=== PATIENT | male | born 1950 | race Caucasian/White ===

== ENCOUNTER 2017-09-21 12:09 | Emergency (ER) | payer MEDICARE ==
[2017-09-21] MEDS ORDERED: Ketorolac Tromethamine 30 MG/ML VIAL ONE (12:54)
== END 2017-09-21 13:05 | disposition home or self-care (01) ==
LOC: ERS 12:09
DX: R21 Rash and other nonspecific skin eruption (principal); E78.5 Hyperlipidemia, unspecified; I10 Essential (primary) hypertension; F17.210 Nicotine dependence, cigarettes, uncomplicated
CPT/HCPCS: 96372; J1885

== ENCOUNTER 2018-03-03 16:16 | Outpatient (CLI) | payer MEDICARE ==
--- NOTE | 2018-03-03 17:49 | CT ---
LOW DOSE SCREENING LUNG CT: 03/03/18 HISTORY: Personal history of tobacco use. 51 years of smoking. Family history of lung cancer. COMPARISON: None. TECHNIQUE: Noncontrast low dose helical CT of the lungs is performed utilizing institution protocol. Reformatted images are submitted for interpretation. FINDINGS: Lung screen specific (Lung RADS) negative. Minor findings not suspicious for primary lung cancer. Potential significant lymph nodes (Lung RADS category S): None. Pulmonary incidentals: Bilateral apical blebs are noted. Other incidentals: Minimal coronary calcifications. IMPRESSION: 1. Lung RADS category 1: Negative. No evidence of primary lung cancer. 2. Lung RADS category S: Negative. No new or unknown potential significant incidental findings r equiring urgent or additional evaluation. RECOMMENDATION: Followup annual low dose screening CT in one year. POS: HEDY
== END 2018-03-03 16:17 | disposition home or self-care (01) ==
LOC: CT 16:16
PROVIDERS: ATTEND Student in an Organized Health Care Education/Training Program
DX: F17.210 Nicotine dependence, cigarettes, uncomplicated (principal); Z00.00 Encounter for general adult medical examination without abnormal findings; I10 Essential (primary) hypertension; Z82.49 Family history of ischemic heart disease and other diseases of the circulatory system
CPT/HCPCS: G0297

== ENCOUNTER 2018-03-26 16:14 | Emergency (ER) | payer MEDICARE, BC ==
[2018-03-26] MEDS ORDERED: diphenhydrAMINE 25 MG CAP ONE (17:34)
== END 2018-03-26 17:50 | disposition home or self-care (01) ==
LOC: ERS 16:14
DX: M79.89 Other specified soft tissue disorders (principal); T50.905A Adverse effect of unspecified drugs, medicaments and biological substances, initial encounter; E78.5 Hyperlipidemia, unspecified; I10 Essential (primary) hypertension; F17.210 Nicotine dependence, cigarettes, uncomplicated
CPT/HCPCS: 99283

== ENCOUNTER 2018-08-15 11:35 | Emergency (ER) | payer BC, MEDICARE, OTHER | END 2018-08-15 12:15 | disposition home or self-care (01) | LOC: ERS 11:35 | DX: B02.9 Zoster without complications (principal); E78.5 Hyperlipidemia, unspecified; I10 Essential (primary) hypertension | CPT/HCPCS: 99283 ==

== ENCOUNTER 2020-02-13 06:48 | Inpatient (IN) | payer BC, MEDICARE ==
[2020-02-13] MEDS ORDERED: Heparin 1,000 UNITS/ML VIAL ONE (06:52)
[2020-02-13 07:04] LABS: #Eosinphils 0.3 thou/uL (0.0-0.7); #Monocytes 0.5 thou/uL (0.11-0.59); #Neutrophils 2.6 thou/uL (1.40-6.50); %Basophils 0.7 % (0.0-1.0); %Eosinophils 5.2 % (0.0-10.0); %Lymphocytes 45.9 % (21.0-51.0); %Monocytes 8.1 % (0.0-10.0); %Neutrophils 40.2 % (42.0-75.0); Hemoglobin 15.4 g/dL (14.0-18.0); Mean Corpuscular HGB CONC 34.3 g/dL (32.0-36.0); Mean Corpuscular Hemoglobin 33.7 pg (27.0-31.0); Mean Corpuscular Volume 98.4 fL (78.0-98.0); Platelet Count 270 thou/uL (130-400); RBC Distribution Width 12.4 % (11.5-14.5); Red Blood Cell (RBC) Count 4.58 mill/uL (4.70-6.10); White Blood Cell (WBC) Count 6.5 thou/uL (4.8-10.8)
[2020-02-13 07:13] LABS: INR-International Normal Ratio 0.9; PTT 26.9 SEC (22.9-36.1); Prothrombin Time 11.6 SEC (12.0-14.7)
[2020-02-13] MEDS ORDERED: Nitroglycerin 100MG/250ML BOT 0 ML ONE (07:22)
[2020-02-13] MEDS ORDERED: Ondansetron PF 4 MG/2 ML Vial ONE (07:22)
[2020-02-13] MEDS ORDERED: Heparin 10,000 UNITS/1 ML VIAL ONE (07:22)
[2020-02-13] MEDS ORDERED: Atropine Sulfate 1 mg/10 ml Syringe ONE (07:26)
[2020-02-13] MEDS ORDERED: Atropine Sulfate 1 mg/1 ml Vial ONE (07:26)
[2020-02-13] MEDS ORDERED: Aggrastat 12.5 MG/250 ML 250 ML ONE (07:27)
[2020-02-13 07:33] LABS: ALT (SGPT) 20 U/L (8-55); AST (SGOT) 19 U/L (5-34); Alkaline Phosphatase 114 U/L (40-110); Anion Gap 12 mmol/L (10-20); BUN (Urea Nitrogen) 15 mg/dL (8.4-25.7); Bilirubin, Total 0.4 mg/dL (0.2-1.2); Calc. Creatinine Clearance 0 mL/min (70-130); Carbon Dioxide 28 mmol/L (23-31); Chloride 108 mmol/L (98-107); Estimated GFR-MDRD 77; Globulin 2.5 g/dL (2.4-3.5); Glucose 146 mg/dL (80-115); Potassium 3.8 mmol/L (3.5-5.1); Protein, Total 6.5 g/dL (5.8-8.1); Sodium 144 mmol/L (136-145)
[2020-02-13] MEDS ORDERED: Milk Of Magnesia 30 ML UDCUP PO PRN (08:08)
[2020-02-13] MEDS ORDERED: traMADol HCl 50 MG TAB PO PRN (08:08)
[2020-02-13] MEDS ORDERED: Mag-Al 1200 mg/1200 mg/30 ML UDCUP PO PRN (08:08)
[2020-02-13] MEDS ORDERED: Nitroglycerin 0.4 MG TAB (25 Tab Bottle) SL PRN (08:08)
[2020-02-13] MEDS ORDERED: Acetaminophen/Codeine 30-300mg Tablet PO PRN (08:08)
[2020-02-13] MEDS ORDERED: Zolpidem Tartrate 5 MG TAB PO PRN (08:08)
[2020-02-13] MEDS ORDERED: Aggrastat 12.5 MG/250 ML 250 ML IVPB SCH (08:15)
--- NOTE | 2020-02-13 08:37 | HP ---
CHIEF COMPLAINT: Chest pain. HISTORY OF PRESENT ILLNESS: Mr. Fontenot is a pleasant 69-year-old white gentleman, who comes to the hospital for chest pain. He started having chest pain at about 5:30 a.m. He showed up in the hospital at about 6:30. He was found to have an inferior ST-elevation RI, so he was taken emergently to the catheterization lab, where he was found to have a very large dominant left circumflex, which was occluded proximally. This was successfully opened and stented with a bare-metal stent. He did well postprocedure. He was bradycardic initially. His heart rate was in the 60s to 70s at the end. His blood pressure was normal. He was conversant and pain-free. PAST MEDICAL HISTORY: Hypertension, on no medications. PAST SURGICAL HISTORY: Tonsillectomy. OUTPATIENT MEDICATIONS: None. He states that blood pressure medicines made him feel bad, so he did not take them. ALLERGIES: NO KNOWN DRUG ALLERGIES. SOCIAL HISTORY: He smokes a pack a day for 50 years. REVIEW OF SYSTEMS: A 12-point review of systems was done and was all negative unless stated in the history of present illness. PHYSICAL EXAMINATION: VITAL SIGNS: Temperature 98.2, pulse 72, respiratory rate 16, saturating 98% on 2 L nasal cannula. GENERAL: Awake, alert, oriented x3. No distress. HEENT: Normocephalic and atraumatic. NECK: Supple. LUNGS: Clear. CARDIOVASCULAR: S1, S2. No S3 or S4. No murmurs. ABDOMEN: Soft. Positive bowel sounds. EXTREMITIES: No edema. SKIN: Warm and dry. LABORATORY DATA: Laboratory work was reviewed. White count of 6, hemoglobin of 15, hematocrit of 45, and platelet count of 270. Coags were unremarkable. Chemistry was unremarkable. Initial troponin of 0.016. EKG showed inferior ST elevations. ASSESSMENT: 1. Inferior ST-elevation myocardial infarction. 2. Status post bare-metal stent to the dominant left circumflex. 3. Hypertension. 4. Tobacco abuse. 5. Noncompliance. PLAN: 1. Dual antiplatelet therapy for a minimum of one month, ideally one year. We will do Brilinta and aspirin while he is in the hospital. Depending on how we see his attitude toward medications as well as his insurance status, we will decide if we just switch him back to Plavix. 2. High dose statin. 3. Beta-bartolome and GOMEZ inhibitor once blood pressure allows. Currently blood pressure is borderline low. 4. Full code. 5. PPI for stress ulcer prophylaxis. 6. Aggrastat for 6 hours and then pull the sheath 1 hour later. 7. Disposition, pending clinical evaluation. Job ID: [id number]
--- NOTE | 2020-02-13 09:00 | RAD ---
Exam: Chest one view HISTORY:Chest pain. Comparison: 08/12/2006 FINDINGS: Cardiac silhouette: Normal Aorta: Unremarkable Pulmonary vessels: Normal Costophrenic angles: Clear LUNGS: No masses or consolidation. Pneumothorax: None Osseous abnormalities: None IMPRESSION: No acute cardiopulmonary process.
[2020-02-13] MEDS ORDERED: Heparin 10,000 UNITS/ 10 ML VIAL ONE (09:19)
[2020-02-13] MEDS ORDERED: Iopamidol 370 76% 50 ML VIAL FS ONE (09:30)
[2020-02-13] MEDS ORDERED: Iopamidol 370 76% 100 ML VIAL ONE (09:30)
[2020-02-13 11:15] VITALS: BMI 26.3
[2020-02-13] MEDS: TICAGRELOR 90 MG TABLET PO SCH ×2 (11:27→20:10)
[2020-02-13] MEDS: Aspirin Chewable 81 MG TAB PO SCH (11:27)
[2020-02-13 12:41] LABS: CKMB 326.7 ng/mL (0-6.6); Troponin I 155.847 ng/mL (< 0.028)
[2020-02-13] MEDS ORDERED: Sodium Chloride 0.9% 500 ML IV SCH (13:45)
[2020-02-13 15:16] LABS: CKMB 287.4 ng/mL (0-6.6); Critical Call CKMB RESULT DECREASING
[2020-02-13 15:38] LABS: Troponin I 186.106 ng/mL (< 0.028)
[2020-02-13] MEDS: Atorvastatin Calcium 40 MG TAB PO SCH (20:09)
[2020-02-14 03:32] LABS: #Basophils 0.1 thou/uL (0.0-0.2); #Eosinphils 0.1 thou/uL (0.0-0.7); #Lymphocytes 1.9 thou/uL (1.20-3.40); #Monocytes 0.6 thou/uL (0.11-0.59); #Neutrophils 5.3 thou/uL (1.40-6.50); %Basophils 0.9 % (0.0-1.0); %Eosinophils 1.8 % (0.0-10.0); %Lymphocytes 23.1 % (21.0-51.0); %Monocytes 7.4 % (0.0-10.0); %Neutrophils 66.8 % (42.0-75.0); Hemoglobin 13.9 g/dL (14.0-18.0); Mean Corpuscular HGB CONC 33.7 g/dL (32.0-36.0); Mean Corpuscular Volume 97.8 fL (78.0-98.0); Mean Platelet Volume 8.2 fL (7.4-10.4); Platelet Count 214 thou/uL (130-400); RBC Distribution Width 12.5 % (11.5-14.5); Red Blood Cell (RBC) Count 4.21 mill/uL (4.70-6.10)
[2020-02-14 03:56] LABS: ALT (SGPT) 54 U/L (8-55); AST (SGOT) 197 U/L (5-34); Albumin 3.5 g/dL (3.4-4.8); Alkaline Phosphatase 88 U/L (40-110); Anion Gap 11 mmol/L (10-20); BUN (Urea Nitrogen) 10 mg/dL (8.4-25.7); Bilirubin, Total 0.7 mg/dL (0.2-1.2); Calc. Creatinine Clearance 106 mL/min (70-130); Calcium 8.5 mg/dL (7.8-10.44); Carbon Dioxide 24 mmol/L (23-31); Cardiac Risk 6.6 (Less than 4.5); Chloride 109 mmol/L (98-107); Cholesterol 191 mg/dl (< 200 Desired); Estimated GFR-MDRD Greater than 90; Globulin 2.1 g/dL (2.4-3.5); Glucose 119 mg/dL (80-115); HDL Cholesterol 29 mg/dL (>60 Neg Risk); LDL Cholesterol, Calculated 98 mg/dL; Protein, Total 5.6 g/dL (5.8-8.1); Sodium 140 mmol/L (136-145); Triglycerides 322 mg/dL (Less than 150)
[2020-02-14] MEDS: TICAGRELOR 90 MG TABLET PO SCH ×2 (08:35→21:05)
[2020-02-14] MEDS: Aspirin Chewable 81 MG TAB PO SCH (08:35)
[2020-02-14] MEDS ORDERED: Prevnar 13-Val Conj/PF 0.5 ML SYRINGE IM ONE (09:00)
[2020-02-14] MEDS ORDERED: FLU VACC TS2019-20(65YR UP)/PF 180 MCG/0.5 ML SYRINGE IM ONE (09:00)
--- NOTE | 2020-02-14 16:58 | PDOC.CPN ---
- Subjective Date: 02/14/20 Time: 16:56 Interval history: He is doing well. Denies any angina, no SOB. He has been walking with PT and feels well doing so. - Review of Systems General: denies: fever/chills, weight/appetite/sleep changes, night sweats, fatigue Respiratory: denies: cough, congestion, shortness of breath, exercise intolerance Cardiovascular: denies: chest pain, palpitation, edema, paroxysmal nocturnal dyspnea, orthopnea Gastrointestinal: denies: nausea, vomiting, diarrhea, constipation, abd pain, GI bleeding Musculoskeletal: denies: pain, tenderness, stiffness, swelling, arthritis/ arthralgias Neurological: denies: numbness, syncope, seizure, weakness - Objective Allergies/Adverse Reactions: Allergies Allergy/AdvReac Type Severity Reaction Status Date / Time No Known Allergies Allergy Unverified 02/14/20 10:07 Visit Medications: Current Medications Acetaminophen/Codeine Phosphate (Tylenol #3) 1 tab PO Q4H PRN PRN Reason: Mild Pain (1-3) Al Hydroxide/Mg Hydroxide (Maalox) 30 ml PO Q3H PRN PRN Reason: Indigestion Aspirin (Aspirin Chewable) 81 mg PO DAILY ON LICENSE OF [facility] Last Admin: 02/14/20 08:35 Dose: 81 mg Atorvastatin Calcium (Lipitor) 80 mg PO HS ON LICENSE OF [facility] Last Admin: 02/13/20 20:09 Dose: 80 mg Magnesium Hydroxide (Milk Of Magnesium) 30 ml PO Q12H PRN PRN Reason: Constipation Nitroglycerin (Nitrostat) 0.4 mg SL Q5MIN PRN PRN Reason: Chest Pain Ticagrelor (Brilinta) 90 mg PO BID ON LICENSE OF [facility] Last Admin: 02/14/20 08:35 Dose: 90 mg Tramadol HCl (Ultram) 50 mg PO Q6H PRN PRN Reason: Moderate Pain (4-6) Zolpidem Tartrate (Ambien) 5 mg PO HSPRN PRN PRN Reason: Insomnia Vital Signs & Weight: Vital Signs Temp Pulse Pulse Pulse Resp BP BP 02/14/20 16:37 98.3 F 53 L 16 02/14/20 13:04 97.1 F L 52 L 16 02/14/20 11:00 98.2 F 02/14/20 10:29 52 L 51 L 98/59 L 104/59 L 02/14/20 07:51 02/14/20 07:00 98.5 F BP BP Pulse Ox Pulse Ox Pulse Ox 02/14/20 16:37 99/60 95 02/14/20 13:04 112/57 L 98 02/14/20 11:00 02/14/20 10:29 99 99 02/14/20 07:51 100 02/14/20 07:00 Admit Weight 167 lb 15.876 oz Weight 167 lb 15.876 oz - Physical Exam General: alert & oriented x3 HEENT: mucus membranes moist Neck: supple neck Cardiac: regular rate and rhythm, no murmur Lungs: normal breath sounds Neuro: grossly intact Abdomen: active bowel sounds Extremities: no edema Skin: clear Musculoskeletal: no pain - Labs Result Diagrams: 02/14/20 03:16 02/14/20 03:16 Troponin/CKMB CK-MB (CK-2) 287.4 ng/mL (0-6.6) H* 02/13/20 14:33 Troponin I 186.106 ng/mL (< 0.028) H* 02/13/20 14:33 - Telemetry Sinus rhythms and dysrhythmias: sinus rhythm - Assessment/Plan Assessment/Plan: 1. Inferior STEMI 2. HTN PLAN: - Stable, will transfer to floor. - BP borderline low to start BB or ACEI. - Echo pending.
[2020-02-14] MEDS: Atorvastatin Calcium 40 MG TAB PO SCH (21:05)
--- NOTE | 2020-02-14 21:45 | EKG ---
Test Reason : Blood Pressure : / mmHG Vent. Rate : 066 BPM Atrial Rate : 066 BPM P-R Int : 170 ms QRS Dur : 116 ms QT Int : 430 ms P-R-T Axes : 091 075 -46 degrees QTc Int : 450 ms Normal sinus rhythm Inferior infarct , age undetermined Abnormal ECG When compared with ECG of 12-AUG-2006 10:35, Inferior infarct is now Present T wave inversion now evident in Inferior leads Nonspecific T wave abnormality now evident in Lateral leads Confirmed by GILDA SIMENTAL, DR. Salas ([id number]) on 02/14/2020 9:45:32 PM Referred By: JACOB Confirmed By:DR. Maritza VO MD
[2020-02-15 04:41] LABS: #Eosinphils 0.2 thou/uL (0.0-0.7); #Lymphocytes 1.6 thou/uL (1.20-3.40); #Monocytes 0.6 thou/uL (0.11-0.59); #Neutrophils 4.1 thou/uL (1.40-6.50); %Basophils 0.7 % (0.0-1.0); %Eosinophils 3.2 % (0.0-10.0); %Lymphocytes 23.6 % (21.0-51.0); %Monocytes 9.5 % (0.0-10.0); %Neutrophils 62.9 % (42.0-75.0); Hemoglobin 13.3 g/dL (14.0-18.0); Mean Corpuscular HGB CONC 33.9 g/dL (32.0-36.0); Mean Corpuscular Volume 97.1 fL (78.0-98.0); Mean Platelet Volume 8.7 fL (7.4-10.4); Platelet Count 192 thou/uL (130-400); RBC Distribution Width 12.3 % (11.5-14.5); Red Blood Cell (RBC) Count 4.04 mill/uL (4.70-6.10); White Blood Cell (WBC) Count 6.6 thou/uL (4.8-10.8)
[2020-02-15 04:57] LABS: Anion Gap 11 mmol/L (10-20); BUN (Urea Nitrogen) 10 mg/dL (8.4-25.7); Calc. Creatinine Clearance 102 mL/min (70-130); Calcium 8.5 mg/dL (7.8-10.44); Carbon Dioxide 25 mmol/L (23-31); Chloride 108 mmol/L (98-107); Estimated GFR-MDRD Greater than 90; Glucose 104 mg/dL (80-115); Potassium 3.9 mmol/L (3.5-5.1); Sodium 140 mmol/L (136-145)
[2020-02-15] MEDS: TICAGRELOR 90 MG TABLET PO SCH (08:38)
[2020-02-15] MEDS: Aspirin Chewable 81 MG TAB PO SCH (08:39)
[2020-02-15 12:12] VITALS: BP 98/57; TEMP 98.1
[2020-02-16] MEDS ORDERED: Clopidogrel Bisulfate 75 MG TAB PO SCH (09:00)
[2020-02-16] MEDS ORDERED: Lisinopril 2.5 MG TAB PO SCH (09:00)
--- NOTE | 2020-02-16 22:27 | EKG ---
Test Reason : Blood Pressure : / mmHG Vent. Rate : 047 BPM Atrial Rate : 047 BPM P-R Int : 164 ms QRS Dur : 106 ms QT Int : 478 ms P-R-T Axes : 089 074 -73 degrees QTc Int : 423 ms Marked sinus bradycardia Inferior infarct (cited on or before 13-FEB-2020) Abnormal ECG When compared with ECG of 13-FEB-2020 09:24, (Unconfirmed) Inverted T waves have replaced nonspecific T wave abnormality in Lateral leads Confirmed by Rachael ANDERSON ([id number]) on 02/16/2020 10:27:34 PM Referred By: JACOB Confirmed By:Rachael ANDERSON
--- NOTE | 2020-02-17 14:47 | EKG ---
Test Reason : CP Blood Pressure : / mmHG Vent. Rate : 047 BPM Atrial Rate : 047 BPM P-R Int : 172 ms QRS Dur : 132 ms QT Int : 432 ms P-R-T Axes : 084 078 076 degrees QTc Int : 382 ms Marked sinus bradycardia Non-specific intra-ventricular conduction block Inferior infarct , possibly acute * ACUTE GA * Consider right ventricular involvement in acute inferior infarct STEMI Abnormal ECG Confirmed by NOBLE VILLA M.D. ([id number]), social media editor ABELINO LOPEZ ([id number] on 02/17/2020 2:47:29 PM Referred By: DAISY Confirmed By:NOBLE VILLA M.D.
== END 2020-02-15 15:12 | disposition home or self-care (01) | DRG 249 ==
LOC: ERS 06:48 → CCU 07:06 → 2NO 02-14 12:52
PROVIDERS: ADMIT Internal Medicine Cardiovascular Disease; ATTEND Internal Medicine Cardiovascular Disease
PROC: 02703DZ Dilation of Coronary Artery, One Artery with Intraluminal Device, Percutaneous Approach (ICD-10-PCS; principal; 2020-02-13)
PROC: 4A023N7 Measurement of Cardiac Sampling and Pressure, Left Heart, Percutaneous Approach (ICD-10-PCS; 2020-02-13)
PROC: B2111ZZ Fluoroscopy of Multiple Coronary Arteries using Low Osmolar Contrast (ICD-10-PCS; 2020-02-13)
PROC: B2151ZZ Fluoroscopy of Left Heart using Low Osmolar Contrast (ICD-10-PCS; 2020-02-13)
DX: I21.09 ST elevation (STEMI) myocardial infarction involving other coronary artery of anterior wall (principal); E78.5 Hyperlipidemia, unspecified; F17.210 Nicotine dependence, cigarettes, uncomplicated; I10 Essential (primary) hypertension; Z91.14 Patient's other noncompliance with medication regimen
CPT/HCPCS: 36415; 71045; 80048; 80053; 80061; 82553; 83880; 84443; 84484; 85025; 85347; 85610; 85730; 92928; 92973; 93005; 93010; 93306; 93458; 93798; 96374; C1757; C1769; C1876; C1887; J0461; J1644; J2405; J3246; Q9967

== ENCOUNTER 2021-03-30 12:26 | Outpatient (CLI) | payer MEDICARE | END 2021-03-30 12:27 | disposition home or self-care (01) | LOC: BICCT 12:26 | PROVIDERS: ATTEND Family Medicine | DX: Z12.2 Encounter for screening for malignant neoplasm of respiratory organs (principal); Z87.891 Personal history of nicotine dependence | CPT/HCPCS: 71271 ==

== ENCOUNTER 2024-02-17 13:37 | Observation (INO) | payer OTHER ==
[2024-02-17 14:30] LABS: #Basophils 0.08 10x3/uL (0.0-0.2); %Basophils 1.6 % (0.0-1.0); %Eosinophils 5.5 % (0.0-10.0); %Lymphocytes 38.2 % (21.0-51.0); %Monocytes 8.5 % (0.0-10.0); Hematocrit 44.9 % (42.0-52.0); Hemoglobin 15.7 g/dL (14.0-18.0); Mean Corpuscular Hemoglobin 34.5 pg (27.0-31.0); Mean Corpuscular Volume 98.7 fL (78.0-98.0); Mean Platelet Volume 10.2 fL (7.4-10.4); Platelet Count 208 10x3/uL (130-400); RBC Distribution Width 12.7 % (11.5-14.5); Red Blood Cell (RBC) Count 4.55 mill/uL (4.70-6.10)
[2024-02-17 14:48] LABS: ALT (SGPT) 14 U/L (8-55); AST (SGOT) 15 U/L (5-34); Albumin 4.1 g/dL (3.4-4.8); Alkaline Phosphatase 98 U/L (40-110); Anion Gap 11 mmol/L (10-20); BUN (Urea Nitrogen) 11 mg/dL (8.4-25.7); Bilirubin, Total 0.6 mg/dL (0.2-1.2); Calc. Creatinine Clearance 0 mL/min (70-130); Calcium 9.6 mg/dL (7.8-10.44); Carbon Dioxide 28 mmol/L (23-31); Chloride 107 mmol/L (98-107); Estimated GFR 86; Globulin 2.6 g/dL (2.4-3.5); Glucose 101 mg/dL (83-110); Potassium 4.3 mmol/L (3.5-5.1); Protein, Total 6.7 g/dL (5.8-8.1); Sodium 142 mmol/L (136-145)
[2024-02-17 14:52] LABS: Troponin I 0.012 ng/mL (< 0.028)
[2024-02-17] MEDS ORDERED: Acetaminophen 650 MG Suppository PR PRN (16:48)
[2024-02-17] MEDS ORDERED: Ondansetron PF 4 MG/2 ML Vial IVP PRN (16:48)
[2024-02-17] MEDS ORDERED: Ondansetron ODT 4 MG TAB PO PRN (16:48)
[2024-02-17 17:41] LABS: Troponin I 0.013 ng/mL (< 0.028)
[2024-02-17] MEDS: Aspirin Chewable 81 MG TAB PO SCH (19:16)
[2024-02-17 19:19] VITALS: BMI 24.2
[2024-02-17] MEDS: Nicotine 14 MG PATCH TD SCH (19:36)
[2024-02-17 22:16] LABS: Troponin I Less than 0.010 ng/mL (< 0.028)
[2024-02-18] MEDS: Acetaminophen 325 MG TAB PO PRN (02:18)
[2024-02-18] MEDS: Ketorolac Tromethamine 30 MG (1 mL) VIAL IVP SCH (04:13)
[2024-02-18 06:02] LABS: #Basophils 0.08 10x3/uL (0.0-0.2); %Basophils 1.8 % (0.0-1.0); %Eosinophils 8.6 % (0.0-10.0); %Lymphocytes 36.5 % (21.0-51.0); %Monocytes 10.8 % (0.0-10.0); %Neutrophils 42.3 % (42.0-75.0); Hematocrit 41.2 % (42.0-52.0); Hemoglobin 14.4 g/dL (14.0-18.0); Mean Corpuscular Hemoglobin 34.5 pg (27.0-31.0); Mean Corpuscular Volume 98.8 fL (78.0-98.0); Mean Platelet Volume 10.2 fL (7.4-10.4); Platelet Count 188 10x3/uL (130-400); RBC Distribution Width 12.8 % (11.5-14.5); Red Blood Cell (RBC) Count 4.17 mill/uL (4.70-6.10)
[2024-02-18 06:17] LABS: Anion Gap 10 mmol/L (10-20); BUN (Urea Nitrogen) 12 mg/dL (8.4-25.7); Calc. Creatinine Clearance 79 mL/min (70-130); Calcium 9.4 mg/dL (7.8-10.44); Carbon Dioxide 27 mmol/L (23-31); Cardiac Risk 5.1 (Less than 4.5); Chloride 109 mmol/L (98-107); Cholesterol 224 mg/dl (< 200 Desired); Estimated GFR 93; Glucose 111 mg/dL (83-110); HDL Cholesterol 44 mg/dL (>60 Neg Risk); LDL Cholesterol, Calculated 146 mg/dL; Sodium 142 mmol/L (136-145); Triglycerides 168 mg/dL (Less than 150)
[2024-02-18 08:04] VITALS: TEMP 97.9
[2024-02-18] MEDS: Aspirin Chewable 81 MG TAB PO SCH (10:07)
[2024-02-18] MEDS ORDERED: Regadenoson 0.4 MG/5 ML SYRINGE ONE (11:51)
[2024-02-18 14:19] VITALS: BP 138/69
== END 2024-02-18 15:35 | disposition home or self-care (01) ==
LOC: ERS 13:37 → ERHOLD 16:31 → 2SW 18:28
PROVIDERS: ADMIT Family Medicine; ATTEND Family Medicine
DX: R07.9 Chest pain, unspecified (principal); I10 Essential (primary) hypertension; E78.5 Hyperlipidemia, unspecified; I25.10 Atherosclerotic heart disease of native coronary artery without angina pectoris; I21.3 ST elevation (STEMI) myocardial infarction of unspecified site; Z95.1 Presence of aortocoronary bypass graft; F17.210 Nicotine dependence, cigarettes, uncomplicated; Z79.82 Long term (current) use of aspirin; Z79.02 Long term (current) use of antithrombotics/antiplatelets; Z79.899 Other long term (current) drug therapy; Z90.89 Acquired absence of other organs
CPT/HCPCS: 71046; 78452; 80048; 80053; 80061; 84484 ×2; 85025 ×2; 93005; 93017; 94760; 99285; A9502; J2785; 36415; 96374; G0378; J1885